=== PATIENT | male | born 1985 ===

== ENCOUNTER 2021-07-25 22:37 | Emergency (ER) | payer BC, SELFPAY ==
[2021-07-25 22:44] VITALS: BP 135/78; PULSE 77; RESP 20; TEMP 36.4; O2SAT 97
--- NOTE | 2021-07-26 00:32 | PC.NURSE ---
ambulated out of ER to waiting vehicle while stating I think I'm gonna try and come back tomorrow. No s/s of distress. Speech clear. Resps even/nonlabored. ambulatory c steady, even, unassisted gait.
== END 2021-07-26 00:37 | disposition left against medical advice (07) ==
LOC: ANHED 07-26 00:35
DX: R51.9 Headache, unspecified (principal)
CPT/HCPCS: 99199